=== PATIENT | male | born 1985 | race American Indian/Alaskan Native ===

== ENCOUNTER 2018-09-22 09:56 | Outpatient (CLI) | payer OTHER ==
--- NOTE | 2018-09-22 10:35 | XRay Report ---
LEFT SHOULDER: History: Disability exam, pain. Routine views demonstrate normal bony and soft tissue structures with normal joint alignment of the shoulder. IMPRESSION: Normal study.
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
--- NOTE | 2018-09-22 10:38 | XRay Report ---
LEFT WRIST, 2 views: HISTORY: Disability exam, pain. Routine views demonstrate the carpal bones to be well mineralized with well preserved bony mineralization and interosseous joint spaces. The carpal and adjacent articular bones have normal contours. The surrounding soft tissues are unremarkable. IMPRESSION: Normal study.
--- NOTE | 2018-09-22 10:38 | XRay Report ---
LEFT HAND, 2 views: History: Disability exam, pain. The bony architecture is intact. Bony alignment is normal. No soft tissue abnormalities are seen. The joint spaces appear preserved. IMPRESSION: Normal left hand.
== END 2018-09-22 09:57 | disposition home or self-care (01) ==
LOC: XRAY 09:56
PROVIDERS: ATTEND Internal Medicine
DX: Z02.71 Encounter for disability determination (principal); S42.402A Unspecified fracture of lower end of left humerus, initial encounter for closed fracture; M25.512 Pain in left shoulder; M25.532 Pain in left wrist; M79.642 Pain in left hand; M25.552 Pain in left hip; X58.XXXA Exposure to other specified factors, initial encounter; Y93.89 Activity, other specified; Y92.89 Other specified places as the place of occurrence of the external cause; Y99.8 Other external cause status